=== PATIENT | female | born 1980 | race African-American/Black ===

== ENCOUNTER 2024-06-24 16:11 | Inpatient (IN) | payer OTHER ==
[2024-06-24 16:38] VITALS: BMI 66.3
[2024-06-24] MEDS: Carvedilol 6.25 MG TAB PO SCH (18:33)
[2024-06-24] MEDS: Amlodipine 10 MG TAB PO SCH (18:33)
[2024-06-24] MEDS ORDERED: Acetaminophen 650 MG Suppository PR PRN (20:24)
[2024-06-24] MEDS ORDERED: Acetaminophen 325 MG TAB PO PRN (20:24)
[2024-06-24] MEDS ORDERED: Ondansetron ODT 4 MG TAB PO PRN (20:24)
[2024-06-24] MEDS ORDERED: Benzonatate 100 MG CAP PO PRN (20:28)
[2024-06-24] MEDS ORDERED: Moisturizing Cream (Eucerin) 113 GM JAR TOP PRN (20:28)
[2024-06-24] MEDS ORDERED: Artificial Tear Ophth Sol 15 ML BOT EA EYE PRN (20:28)
[2024-06-24] MEDS ORDERED: Insulin Lispro 100 UNIT/ML 10 ML VIAL SC PRN (20:32)
[2024-06-24] MEDS ORDERED: Glucagon 1 MG/ML KIT IM PRN (20:32)
[2024-06-24] MEDS ORDERED: Dextrose 5% in Water 1,000 ML IV PRN (20:32)
[2024-06-24] MEDS ORDERED: Dextrose 50% Abboject 50 ML SYRINGE SLOW IVP PRN (20:32)
[2024-06-24] MEDS: FLU (Fluarix Triv) TS24-25(6MOS UP)/PF 45 MCG/0.5 ML Syringe IM ONE (20:53)
[2024-06-24] MEDS: Atorvastatin Calcium 40 MG TAB PO SCH (20:55)
[2024-06-24] MEDS: Hydrochlorothiazide 25 MG TAB PO SCH (20:55)
[2024-06-24] MEDS ORDERED: Amlodipine 10 MG TAB PO SCH (21:00)
[2024-06-25 00:23] LABS: BHCG - Serum Negative (NEGATIVE); Pregs Control Background? CLEAR/WHITE (CLR/WHITE); Pregs Control Bar Appear? YES (CONTROL BAR)
[2024-06-25 08:09] LABS: #Basophils 0.05 10x3/uL (0.0-0.2); %Basophils 0.7 % (0.0-1.0); %Eosinophils 3.7 % (0.0-10.0); %Lymphocytes 27.1 % (21.0-51.0); %Monocytes 7.5 % (0.0-10.0); %Neutrophils 60.7 % (42.0-75.0); Hematocrit 37.9 % (36.0-47.0); Hemoglobin 12.1 g/dL (12.0-16.0); Mean Corpuscular HGB CONC 31.9 g/dL (32.0-36.0); Mean Corpuscular Hemoglobin 25.6 pg (27.0-31.0); Mean Corpuscular Volume 80.1 fL (78.0-98.0); Mean Platelet Volume 11.1 fL (7.4-10.4); Platelet Count 285 10x3/uL (130-400); RBC Distribution Width 17.1 % (11.5-14.5); Red Blood Cell (RBC) Count 4.73 mill/uL (4.20-5.40)
[2024-06-25 08:26] LABS: Anion Gap 16 mmol/L (10-20); BUN (Urea Nitrogen) 11 mg/dL (7.0-18.7); Calc. Creatinine Clearance 255 mL/min (70-130); Calcium 9.1 mg/dL (7.8-10.44); Carbon Dioxide 23 mmol/L (22-29); Chloride 101 mmol/L (98-107); Estimated GFR 83; Glucose 156 mg/dL (70-105); Potassium 3.5 mmol/L (3.5-5.1); Sodium 136 mmol/L (136-145)
[2024-06-25] MEDS: Aspirin 81 mg Enteric Coated Tablet PO SCH (09:35)
[2024-06-25] MEDS: Carvedilol 6.25 MG TAB PO SCH (09:35)
[2024-06-25] MEDS: Enoxaparin 40 MG (0.4 mL) SYRINGE SC SCH (09:36)
[2024-06-25] MEDS: cloNIDine 0.1 MG TAB PO PRN (16:03)
[2024-06-25 16:10] LABS: Hemoglobin A1c 7.6 % (4.0-6.0)
[2024-06-25] MEDS: Amlodipine 10 MG TAB PO SCH (20:45)
[2024-06-26] MEDS: Ciprofloxacin 0.2% Otic (0.25ML CONTAINER) R EAR SCH ×2 (00:14→10:29)
[2024-06-26 05:33] LABS: Anion Gap 12 mmol/L (10-20); BUN (Urea Nitrogen) 16 mg/dL (7.0-18.7); Calc. Creatinine Clearance 200 mL/min (70-130); Calcium 9.3 mg/dL (7.8-10.44); Carbon Dioxide 29 mmol/L (22-29); Chloride 98 mmol/L (98-107); Estimated GFR 62; Glucose 213 mg/dL (70-105); Potassium 3.5 mmol/L (3.5-5.1); Sodium 135 mmol/L (136-145)
[2024-06-26] MEDS: Insulin Lispro 100 UNIT/ML 10 ML VIAL SC PRN (05:52)
[2024-06-26 11:14] VITALS: BP 144/85; TEMP 97.3
[2024-06-26 15:46] VITALS: BMI 65.7
== END 2024-06-26 15:56 | disposition home or self-care (01) | DRG 304 ==
LOC: OBS 16:11 → OBSVTOIN 06-25 16:14
PROVIDERS: ADMIT Internal Medicine; ATTEND Internal Medicine
DX: I16.0 Hypertensive urgency (principal); J81.0 Acute pulmonary edema; Z68.44 Body mass index [BMI] 60.0-69.9, adult; E66.01 Morbid (severe) obesity due to excess calories; E11.9 Type 2 diabetes mellitus without complications; E87.70 Fluid overload, unspecified; I10 Essential (primary) hypertension
CPT/HCPCS: 36415; 36416; 80048; 83036; 84443; 84703; 85025; 93306; 96372; G0378; J1650; J1815